=== PATIENT | female | born 1985 | race Caucasian/White ===

== ENCOUNTER 2017-06-24 16:04 | Emergency (ER) | payer OTHER ==
[~2017-06-24] VITALS: Wt 72.6 kg
[~2017-06-24 16:04] MED LIST: AMOXICILLIN500 MG PO; AMOXIL500 MG PO; ANAPROX DS550 MG PO; CLARITIN10 MG PO; CLEOCIN HCL150 MG PO; DIFLUCAN150 MG PO; HYDROCODONE BIT1 T11 PO; MOTRIN800 MG PO; NAPROSYN500 MG PO; NORCO 325 MG-51 TAB PO; PARAFON FORTE500 MG PO; PYRIDIUM100 MG PO; SINGULAIR10 M1 PO; SINGULAIR10 MG PO; TOBRADEX 0.1%-0.5 ML OPH; TRAMADOL HCL50 MG PO; VICODIN 500 MG-1 TAB PO; VOLTAREN50 M1 PO; Vicodin PO
[2017-06-24] MEDS ORDERED: CEFADROXIL500 M1 PO (16:22)
== END 2017-06-24 18:59 | disposition home or self-care (01) ==
LOC: ED 16:04
DX: O71.89 Other specified obstetric trauma (principal); S61.011A Laceration without foreign body of right thumb without damage to nail, initial encounter; O99.332 Smoking (tobacco) complicating pregnancy, second trimester; F17.200 Nicotine dependence, unspecified, uncomplicated; Z88.6 Allergy status to analgesic agent; Z79.899 Other long term (current) drug therapy; Z3A.26 26 weeks gestation of pregnancy; W26.8XXA Contact with other sharp object(s), not elsewhere classified, initial encounter; Y93.89 Activity, other specified; Y92.89 Other specified places as the place of occurrence of the external cause; Y99.8 Other external cause status

== ENCOUNTER → 2020-09-25 | Outpatient (CLI) | payer OTHER ==
[~2020-09-25] MED LIST changes: +CEFADROXIL500 M1 PO
== END | disposition home or self-care (01) ==
LOC: US 13:30
PROVIDERS: ATTEND Nurse Practitioner Women's Health
DX: Z34.82 Encounter for supervision of other normal pregnancy, second trimester (principal); Z3A.21 21 weeks gestation of pregnancy

== ENCOUNTER 2022-10-17 19:53 | Emergency (ER) | payer OTHER ==
[~2022-10-17] VITALS: Ht 152.4 cm; Wt 78.0 kg
[2022-10-17] MEDS ORDERED: PERCOCET 5-3251 EACH PO (21:00)
== END 2022-10-17 21:28 | disposition home or self-care (01) ==
LOC: ED 19:53
DX: S62.306A Unspecified fracture of fifth metacarpal bone, right hand, initial encounter for closed fracture (principal); Z98.890 Other specified postprocedural states; W21.11XA Struck by baseball bat, initial encounter; Y93.89 Activity, other specified; Y92.89 Other specified places as the place of occurrence of the external cause; Y99.8 Other external cause status

== ENCOUNTER → 2024-09-18 | Outpatient (CLI) | payer OTHER ==
[~2024-09-18] MED LIST changes: +IOHEXOL 300 MG/ML 100 ML VIAL IV ONE; +IOHEXOL 300 MG/ML 100 ML VIAL ONE; +PERCOCET 5-3251 EACH PO
== END | disposition home or self-care (01) ==
LOC: CT 09-06 16:00
PROVIDERS: ATTEND Family Medicine
DX: J32.0 Chronic maxillary sinusitis (principal); J32.1 Chronic frontal sinusitis; G50.9 Disorder of trigeminal nerve, unspecified; J34.2 Deviated nasal septum

== ENCOUNTER 2024-12-09 18:31 | Emergency (ER) | payer OTHER ==
[~2024-12-09] VITALS: Ht 152.4 cm; Wt 79.4 kg
[~2024-12-09 18:31] MED LIST changes: -IOHEXOL 300 MG/ML 100 ML VIAL IV ONE; -IOHEXOL 300 MG/ML 100 ML VIAL ONE
[2024-12-09] MEDS ORDERED: AUGMENTIN400 MG/5 M PO (19:46)
== END 2024-12-09 19:59 | disposition home or self-care (01) ==
LOC: ED 18:31
DX: K02.9 Dental caries, unspecified (principal); Z79.899 Other long term (current) drug therapy; Z98.890 Other specified postprocedural states

== ENCOUNTER → 2025-04-01 | Outpatient (CLI) | payer OTHER ==
[~2025-04-01] MED LIST changes: +AUGMENTIN400 MG/5 M PO
== END | disposition home or self-care (01) ==
LOC: CT 13:40
PROVIDERS: ATTEND Nurse Practitioner Family
DX: J32.0 Chronic maxillary sinusitis (principal); J32.2 Chronic ethmoidal sinusitis; J32.1 Chronic frontal sinusitis; J34.89 Other specified disorders of nose and nasal sinuses; R59.0 Localized enlarged lymph nodes